=== PATIENT | female | born 1985 | race Caucasian/White ===

== ENCOUNTER 2024-11-22 01:35 | Emergency (ER) | payer BC, SELFPAY ==
[2024-11-22 01:38] VITALS: BP 142/78
[2024-11-22 01:54] VITALS: BP 113/60
[2024-11-22 01:56] VITALS: BMI 40.4
[2024-11-22 03:00] VITALS: BP 122/68
[2024-11-22] MEDS: PERCOCET 5/325 1 TABLET PO (03:05)
--- NOTE | 2024-11-22 04:14 | ED.GENMED ---
History of Present Illness
General
Chief Complaint: Back Pain
Source: patient
Exam Limitations: none
Time Seen by Provider: 11/22/24 02:10
Nursing documentation reviewed up to this point in time: agreed with
History of Present Illness
History of Present Illness:
This is a 39-year-old woman who has history of asthma, owt-ifkbjpj-cbklaquvb diabetes, lumbar DJD. While rollerblading with her daisy she states she slipped and fell twice, each time landing on her buttocks, more so on the right buttocks
and complains of moderate to severe pain right posterior buttock, sacral region. She has been ambulatory since incident but complains of increasing pain over the past few hours. Fall/injury occurred around 9 PM.
She has not taken anything for discomfort.
She denies weakness or numbness, no abdominal pain, no nausea no vomiting, no difficulty urinating. She denies headache nor head injury. Denies neck pain.
No history of bleeding disorders and takes no anticoagulants.
She denies risk of , last menstrual period 3 days ago.
She has history of lumbar disc disease but no history of spinal surgeries nor epidural steroid injections. Has never required pain management nor orthopedic evaluation.
She reports allergy to NSAIDs causing hives and lip swelling.
Past History
Past History
ED Past Medical History: Asthma, NIDDM, Psychiatric (ADHD) and Other (Anemia; lumbar disc disease)
ED Past Surgical History: Appendectomy, Gynecological (Tubal ligation) and Tonsilectomy
Social History
Tobacco: Non-smoker
Alcohol: Occasional
Personal:
Living: with family
Employment: Employed
Family History
Family History: Other (Noncontributory)
Phy Exam
Physical Exam
Physical Exam:
GENERAL: 39-year-old overweight female appears her stated age, awake and alert, appears in mild distress related to pain. Cooperative. Lying on her left side.
EYE: anicteric. The head is normocephalic, atraumatic.
NECK: Supple, nontender, no significant adenopathy.
ENT: oral mucosa is moist. No rhinorrhea.
CARDIAC: Regular rate and rhythm. no murmur.
LUNGS: Clear breath sounds bilaterally, no acute respiratory distress, no wheezes/rales/rhonchi
ABDOMEN: Soft, nondistended, without focal tenderness, no r/g, no cvat. normoactive BS.
BACK: Moderate tenderness right sacral region with palpable focal soft tissue contusion along the right mid to superior sacrum with scant early ecchymosis. Mild tenderness to the right posterior hip.
NEUROLOGICAL: Alert and oriented x3, no focal neuro deficits.
SKIN: Warm and dry, normal color, skin intact. No rash.
MUSCULOSKELETAL: No C/C/E. peripheral pulses are full and equal b/l. Mild to moderate tenderness right posterior hip. No tenderness to the anterior nor lateral hip. Moderately restricted range of motion of right hip related to pain. There is no
leg length discrepancy. No tenderness to the thigh nor knees nor lower extremities. Sensation and strength intact.
PSYCH: Normal and appropriate interaction.
Course
Orders/Labs/Results
Orders:
Orders
11/22/24 02:56
Ice Pack-Treatment DIRECTED
Location: right sacrum
Oxycodone/Acetaminophen [Percocet 5/325] 1 tablet PO NOW STA
11/22/24 02:57
CR Hip - RT w/wo Pel 2-3 Vw* Urgent
Comment:
Reason For Exam: fall onto butt/R hip-pain
Include a pelvis x-ray?: Yes
Sacrum/Coccyx 2 View CR [CR Sacrum/coccyx Min 2 View] Urgent
Comment:
Reason For Exam: fall onto butt, R sacral pain
Vital Signs
Initial and Last Documented VS:
Initial Vital Signs
Temp Pulse Resp BP Pulse Ox
98.4 F 83 20 142/78 99
11/22/24 01:38 11/22/24 01:38 11/22/24 01:38 11/22/24 01:38 11/22/24 01:38
Last Documented Vital Signs
Temp Pulse Resp BP Pulse Ox
98.4 F 82 20 114/67 96
11/22/24 01:38 11/22/24 05:00 11/22/24 01:38 11/22/24 05:00 11/22/24 05:00
MDM/Problems Addressed
Differential Diagnosis Includes:
Concern for sacral fracture, pelvic fracture, less likely right hip fracture.
Will medicate for pain with Percocet and will check x-rays.
Will add local ice.
Chronic conditions affecting care: Other (Lumbar disc disease)
*Radiology
Radiology exam reviewed: preliminary read by ED provider (Right hip/pelvis, sacrum x-rays negative for fracture.)
*Pulse Oximetry
Patient hypoxic: no
*Critical Care Note
Total Time (30-74mins, 75-104mins- exclusive of procedures): Not Applicable
Update Note
Update Note:
04:30
Patient feeling improved after dose of Percocet, local ice.
X-rays reviewed by myself, no evidence of fracture.
Recommend supportive measures, rest, local ice. I have written a prescription for a few Percocet for as needed pain.
Prompt follow-up with PCP for recheck.
ED Attending Note
-
Portions of this chart may have been created with voice recognition software.� Occasional wrong word or��sound alike� substitutions may have occurred due to the inherent limitations of voice recognition software.
Discharge Plan
Departure
Patient Disposition: Home (Routine Discharge)
Date of Disposition: 11/22/24
Time of Disposition: 04:30
Patient with high blood pressure during this ER visit?: No
Condition: Good
Discharge Problem:
right sacral contusion
Instructions: Coccyx Injury ED, Contusion
Prescriptions:
New
oxycodone-acetaminophen [Percocet] 5-325 mg Tablet
1 tab PO Q6HPRN PRN (Reason: pain) Qty: 6 0RF
Referrals:
PRIVATE,PHYSICIAN [Family Provider] - Call in 1-3 days for appt
Interventions
Interventions:
*Risk Screen - Suicide Last Done: 11/22/24 01:38
*General Assessment Last Done: 11/22/24 01:38
*Neglect/Abuse Screening Last Done: 11/22/24 01:38
ED- Fall Risk Assessment Last Done: 11/22/24 01:38
*ED COVID-19 Vaccine History Last Done: 11/22/24 01:38
*Nursing Disposition Last Done: 11/22/24 05:00
ED-Musculoskeletal Assessment Last Done: 11/22/24 01:56
Discharge Date and Time
Discharge Date/Time: 11/22/24 05:20
Print Language: OCCITAN
[2024-11-22 04:45] VITALS: BP 114/67
[2024-11-22 05:00] VITALS: BP 114/67
== END 2024-11-22 05:20 | disposition home or self-care (01) ==
LOC: EMR 01:35
PROVIDERS: EMERGENCY PHYSICIAN Emergency Medicine
DX: S30.0XXA Contusion of lower back and pelvis, initial encounter (principal); W01.0XXA Fall on same level from slipping, tripping and stumbling without subsequent striking against object, initial encounter; J45.909 Unspecified asthma, uncomplicated; E11.9 Type 2 diabetes mellitus without complications; Z90.49 Acquired absence of other specified parts of digestive tract; Z98.51 Tubal ligation status
CPT/HCPCS: 99283; 72220; 73502

== ENCOUNTER 2025-02-01 21:15 | Emergency (ER) | payer BC, SELFPAY ==
[2025-02-01 21:15] VITALS: BMI 40.7
[2025-02-01 21:17] VITALS: BP 145/90
[2025-02-01 21:42] LABS: % Basophils 0.2 % (0-2); % Eosinophils 1.5 % (0-6); % Immature Granulocytes 0.4 % (0-0.5); % Monocytes 5.2 % (1.7-9.3); % Neutrophils 57.7 % (42.2-75.2); Absolute Eosinophils 0.1 10^3/uL (0-0.7); Absolute Lymphocytes 2.8 10^3/uL (1.2-3.4); Absolute Monocytes 0.4 10^3/uL (0.1-0.6); Absolute Neutrophils 4.7 10^3/uL (1.4-6.5); Hematocrit 37.5 % (37.0-47.0); Hemoglobin 12.8 g/dL (12.0-16.0); Mean Corp Hgb Conc. 34.1 g/dL (33.0-37.0); Mean Corpuscular Hgb 29.7 pg (27.0-31.0); Mean Platelet Volume 10.8 fL (7.4-10.4); Nucleated Red Blood Cells % 0 %; Platelet Count 260 10^3/uL (130-400); Red Blood Cell Count 4.31 10^6/uL (4.20-5.40); Red Cell Dist. Width 12.5 % (11.5-14.5); White Blood Cell Count 8.1 10^3/uL (4.8-10.8)
[2025-02-01 21:54] LABS: ALT (SGPT) 41 U/L (0-35); AST (SGOT) 31 U/L (14-36); Albumin 4.5 g/dl (3.5-5.0); Alkaline Phosphatase 57 U/L (38-126); Blood Urea Nitrogen 14 mg/dl (7-17); Calcium 10.3 mg/dl (8.4-10.2); Carbon Dioxide 25 mmol/L (22-30); Chloride 103 mmol/L (98-107); Glucose 184 mg/dl (70-99); Potassium 4.3 mmol/L (3.5-5.1); Sodium 138 mmol/L (135-145); Total Bilirubin 0.6 mg/dl (0.2-1.3); Total Protein 7.2 g/dl (6.3-8.2); eGFR > 60.00
--- NOTE | 2025-02-02 00:02 | ED.GENMED ---
History of Present Illness
General
Chief Complaint: Dizziness
Source: patient
Exam Limitations: none
Time Seen by Provider: 02/02/25 00:00
Nursing documentation reviewed up to this point in time: agreed with
History of Present Illness
History of Present Illness:
This is a 40-year-old female past medical history of asthma, diabetes, adhd, who presents emergency department today with concerns of sensation of vertigo starting upon waking this morning. She never had anything like this before. She reports that
when she turned her head this morning, she felt a sensation that the room was spinning. When she lays still, symptoms do improve. This sensation is associated with a posterior headache. She denies any fevers or chills. She denies any trauma to the
head or neck. She has no nausea or vomiting associated with this. Patient was able to take some naps today and upon awakening, this did improve her symptoms however anytime she briskly turns her head or looks up or down she hit with that sensation
of room spinning again. She has not had any syncopal episodes. She denies any chest pain or shortness of breath. She denies dysphagia, dysarthria. Patient states her ears have felt full recently but denies any tinnitus.
Past History
Past History
ED Past Medical History: Asthma, NIDDM, Psychiatric (ADHD) and Other (Anemia; lumbar disc disease)
ED Past Surgical History: Appendectomy, Gynecological (Tubal ligation) and Tonsilectomy
Social History
Tobacco: Non-smoker
Alcohol: Occasional
Personal:
Living: with family
Employment: Employed
Family History
Family History: Other (Noncontributory)
Review of Systems
Review of Systems
All Other Systems: ROS reviewed and negative except as documented in HPI and ROS
Phy Exam
Physical Exam
Physical Exam:
General: Patient is well appearing and in no acute distress; non-toxic
Skin: Warm and dry, no rashes or lesions
Head: Normocephalic, atraumatic
Eyes: Sclera non-icteric. EOMs intact. No nystagmus
Cardiac: Regular rate and rhythm, no murmurs
Peripheral Vascular: No lower extremity swelling or edema
Pulm: Normal respiratory effort, no wheezes, rales, or rhonchi
Abdomen: No abdominal tenderness to palpation
Neuro: CN II-XII intact, no focal neurologic deficits. Normal finger to nose, heel to stewart testing. Normal gate.
Psychiatric: Appropriate mood and affect.
Course
Orders/Labs/Results
Orders:
Orders
02/01/25 21:21
EKG [Electrocardiogram (*1)] Urgent
Reason for Study: Vertigo / Dizzy
EKG- Treatment ONCE
02/01/25 21:31
Complete Blood Count/With Diff Urgent
Comprehensive Metabolic Panel Urgent
02/02/25 00:36
CT Head W/o Iv Contrast Urgent
Comment:
Reason For Exam: dizziness
0.9% Sodium Chloride 1000 ml [Nss] 1,000 ml IV BOLUS
02/02/25 00:37
Meclizine [Antivert] 25 mg PO NOW STA
Abnormal Lab Results
02/01/25
21:31
MPV 10.8 H fL
(7.4-10.4)
Glucose 184 H mg/dl
(70-99)
Calcium 10.3 H mg/dl
(8.4-10.2)
ALT 41 H U/L
(0-35)
02/01/25 21:31
02/01/25 21:31
Vital Signs
Initial and Last Documented VS:
Initial Vital Signs
Temp Pulse Resp BP Pulse Ox
98.4 F 86 18 145/90 99
02/01/25 21:17 02/01/25 21:17 02/01/25 21:17 02/01/25 21:17 02/01/25 21:17
Last Documented Vital Signs
Temp Pulse Resp BP Pulse Ox
98.4 F 86 18 124/76 97
02/01/25 21:17 02/01/25 21:17 02/01/25 21:17 02/02/25 02:53 02/02/25 02:46
MDM/Problems Addressed
Differential Diagnosis Includes:
ddx include BPPV, vestibular neuritis, brain tumor, complex migraine, dehydration, monjauro side affect, CVA
MDM/Problems Addressed:
This is a 40-year-old female past medical history of asthma, diabetes, adhd, who presents emergency department today with concerns of sensation of vertigo starting upon waking this morning. She never had anything like this before. Symptoms are very
clearly positional and worsened with brisk head movement. Episodes of dizziness last for a few seconds to a minute and then resolve when she remains still again. Since she is never had the symptoms before, did get a CAT scan of the head which did
not show any evidence of any acute disease. Did give patient IV fluids and a dose of meclizine. On reassessment, did have patient do the same movements with her head and walk around she states that the vertigo sensation resting sensations
completely resolved. Suspect BPPV. Information given for vestibular rehab, recommend following up with primary. Low suspicion for posterior CVA. Patient stable for discharge.
Chronic conditions affecting care:
asthma, diabetes, ADHD
*Pulse Oximetry
Patient hypoxic: no
*Critical Care Note
Total Time (30-74mins, 75-104mins- exclusive of procedures): Not Applicable
Data Reviewed
Review of Other/Old Records Reveals: Records (Reviewed ER physician documentation 11/22/2024, patient seen for DJD of the on back pain)
Source: patient and records
Patient Management
Escalation/DeEscalation of care consider admission/obs:
admit not indicated pt stable for discharge
ED Attending Note
-
Portions of this chart may have been created with voice recognition software.� Occasional wrong word or��sound alike� substitutions may have occurred due to the inherent limitations of voice recognition software.
Discharge Plan
Departure
Patient Disposition: Home (Routine Discharge)
Date of Disposition: 02/02/25
Time of Disposition: 02:59
Patient with high blood pressure during this ER visit?: Yes
Condition: Good
Discharge Problem:
Vertigo
Instructions: Vertigo (a Type of Dizziness) (DC), BLOOD PRESSURE
Prescriptions:
New
meclizine 25 mg tablet
25 mg PO BID PRN (Reason: dizziness) Qty: 10 0RF
No Action
oxycodone-acetaminophen [Percocet] 5-325 mg Tablet
1 tab PO Q6HPRN PRN (Reason: pain) Qty: 6 0RF
Referrals:
PRIVATE,PHYSICIAN [Family Provider] -
Stand Alone Forms: Return to Work
Activity Restrictions/Additional Instructions:
Your CT scan was normal.
Meclizine has been sent to your pharmacy. You can take 1 tablet twice daily as needed for dizziness/vertigo.
Please follow-up with her PCP in 1 week, you may need to see an ENT for further evaluation of your symptoms or neurologist should your symptoms return.
PLEASE RETURN EMERGENCY DEPARTMENT SHOULD YOU EXPERIENCE RETURN OF SYMPTOMS, ACUTE WORSENING OF HER SYMPTOMS, TRACTABLE NAUSEA OR VOMITING, VISUAL LOSS, WEAKNESS IN ONE-SIDED BODY, NUMBNESS OR TINGLING, CONFUSION, SYNCOPAL EPISODES, OR ANY OTHER
SIGNS OR SYMPTOMS WORRISOME TO YOU.
Interventions
Interventions:
*Risk Screen - Suicide Last Done: 02/01/25 21:17
*General Assessment Last Done: 02/01/25 21:17
*ED- Fall Risk Assessment Last Done: 02/01/25 21:17
*ED COVID-19 Vaccine History Last Done: 02/01/25 21:17
*Nursing Disposition Last Done: 02/02/25 03:08
ED- Neurological Assessment Last Done: 02/02/25 01:33
ED Swallowing Screen Last Done: 02/02/25 01:33
Discharge Date and Time
Discharge Date/Time: 02/02/25 03:08
Print Language: AMHARIC
[2025-02-02] MEDS: ANTIVERT 25 MG PO (01:12)
[2025-02-02] MEDS: NSS 1000 IV (01:25)
[2025-02-02 01:27] VITALS: BP 125/66
[2025-02-02 02:53] VITALS: BP 124/76
== END 2025-02-02 03:08 | disposition home or self-care (01) ==
LOC: EMR 21:15
PROVIDERS: Emergency Medicine; EMERGENCY PHYSICIAN Student in an Organized Health Care Education/Training Program
DX: R42 Dizziness and giddiness (principal); R51.9 Headache, unspecified; R03.0 Elevated blood-pressure reading, without diagnosis of hypertension; J45.909 Unspecified asthma, uncomplicated; E11.9 Type 2 diabetes mellitus without complications; F90.9 Attention-deficit hyperactivity disorder, unspecified type; M51.369 Other intervertebral disc degeneration, lumbar region without mention of lumbar back pain or lower extremity pain; M19.90 Unspecified osteoarthritis, unspecified site; D64.9 Anemia, unspecified; Z79.84 Long term (current) use of oral hypoglycemic drugs; Z88.6 Allergy status to analgesic agent
CPT/HCPCS: 99284; 96360; 70450; 80053; 85025; 93005

== ENCOUNTER 2025-03-05 04:12 | Emergency (ER) | payer BC, SELFPAY ==
[2025-03-05 04:14] VITALS: BP 143/95
[2025-03-05] MEDS: ZOFRAN 4 MG IV (04:46)
[2025-03-05] MEDS: DILAUDID 0.5 MG IV (04:46)
[2025-03-05] MEDS: NSS 1000 IV (04:47)
[2025-03-05 04:49] VITALS: BP 119/71
[2025-03-05 04:51] VITALS: BMI 39.8
[2025-03-05 04:59] LABS: % Basophils 0.3 % (0-2); % Eosinophils 1.3 % (0-6); % Immature Granulocytes 0.1 % (0-0.5); % Lymphocytes 31.3 % (20.5-51.1); % Monocytes 7.4 % (1.7-9.3); % Neutrophils 59.6 % (42.2-75.2); Absolute Eosinophils 0.1 10^3/uL (0-0.7); Absolute Lymphocytes 2.1 10^3/uL (1.2-3.4); Absolute Monocytes 0.5 10^3/uL (0.1-0.6); Absolute Neutrophils 4.1 10^3/uL (1.4-6.5); Hematocrit 35.8 % (37.0-47.0); Hemoglobin 12.4 g/dL (12.0-16.0); Mean Corp Hgb Conc. 34.6 g/dL (33.0-37.0); Mean Corpuscular Hgb 30.1 pg (27.0-31.0); Mean Corpuscular Volume 86.9 fL (81.0-99.0); Mean Platelet Volume 11.5 fL (7.4-10.4); Nucleated Red Blood Cells % 0 %; Platelet Count 249 10^3/uL (130-400); Red Blood Cell Count 4.12 10^6/uL (4.20-5.40); Red Cell Dist. Width 12.6 % (11.5-14.5); White Blood Cell Count 6.8 10^3/uL (4.8-10.8)
[2025-03-05 05:00] VITALS: BP 111/65
--- NOTE | 2025-03-05 05:05 | ED.GENMED ---
History of Present Illness
<MICHELLE Moore Jr. Last Filed: 03/06/25 01:46>
General
Chief Complaint: Abdominal Pain
Source: patient
Exam Limitations: none
Time Seen by Provider: 03/05/25 04:19
Nursing documentation reviewed up to this point in time: agreed with
History of Present Illness
History of Present Illness:
40-year-old female past medical history of diabetes asthma anemia presenting to the emergency department today with concerns of left lower quadrant abdominal pain starting yesterday morning worsening today severe overnight which made her come to the
ER. Apparently she has had workups in the past at [facility] that did not find any specific cause. Also has followed up with gynecology without any explanation.
Past History
<MICHELLE Moore Jr. Last Filed: 03/06/25 01:46>
Past History
ED Past Medical History: Asthma, NIDDM, Psychiatric (ADHD) and Other (Anemia; lumbar disc disease)
ED Past Surgical History: Appendectomy, Gynecological (Tubal ligation) and Tonsilectomy
Social History
Tobacco: Non-smoker
Alcohol: Occasional
Personal:
Living: with family
Employment: Employed
Family History
Family History: Other (Noncontributory)
Review of Systems
<MICHELLE Moore Jr. Last Filed: 03/06/25 01:46>
Review of Systems
Allergies reviewed?: Yes
All Other Systems: ROS reviewed and negative except as documented in HPI and ROS
Phy Exam
<MICHELLE Moore Jr. Last Filed: 03/06/25 01:46>
Physical Exam
Physical Exam:
GENERAL: Alert , in no apparent distress
EYE: pupils equal and reactive
NECK: Supple, no significant adenopathy.
ENT: o/p clr, mmm.
CARDIAC: Regular rate and rhythm .
LUNGS: Clear breath sounds bilaterally, no acute respiratory distress, no wheezes/rales/rhonchi
ABDOMEN: Reproducible pain to the left lower quadrant of the abdomen otherwise soft abdomen
NEUROLOGICAL: Alert and oriented, no focal neuro deficits
SKIN: Warm and dry, skin intact.
MUSCULOSKELETAL: No edema, well perfused.
PSYCH: Normal and appropriate interaction.
Course
<Andrea Persaud Jr., PA-C - Last Filed: 03/06/25 01:46>
Orders/Labs/Results
Orders:
Orders
03/05/25 04:39
CT Abd/Pel (IV only)-DH only Urgent
Comment:
Reason For Exam: llq pain
0.9% Sodium Chloride 1000 ml [Nss] 1,000 ml IV BOLUS
HYDROmorphone [Dilaudid] 0.5 mg IV NOW STA
Ondansetron Injectable [Zofran] 4 mg IV NOW STA
Test Result ONCE
03/05/25 04:46
Complete Blood Count/With Diff Urgent
Comprehensive Metabolic Panel Urgent
HCG, Serum Qualitative Screen Urgent
Lipase Urgent
03/05/25 07:01
Acetaminophen 1000MG/100Ml [Ofirmev] 1,000 mg in 100 ml IV ONCE
Acetaminophen IV Indication:: ED Narcotic Naive Pt-ONCE
03/05/25 07:02
Acetaminophen 1000MG/100Ml [Ofirmev] 1,000 mg in 100 ml .ROUTE .STK-MED
03/05/25 07:15
Urinalysis Reflex To Culture Urgent
Date Specimen was Collected: 03/05/25
Time Specimen was Collected: 07:13
Urine Microscopic Reflex Cult Urgent
03/05/25 08:13
US Pelvis Only (non-obstetric) Urgent
Comment:
Reason For Exam: left lower abd pain
Abnormal Lab Results
03/05/25 03/05/25
04:46 07:15
RBC 4.12 L 10^6/uL
(4.20-5.40)
Hct 35.8 L %
(37.0-47.0)
MPV 11.5 H fL
(7.4-10.4)
Glucose 159 H mg/dl
(70-99)
ALT 54 H U/L
(0-35)
Ur Occult Blood Reflex 4+ A
(Negative)
Urine RBC 3-6 A /HPF
(0-2)
Urine Bacteria (Reflex) Few A
(Negative)
Urine Albumin (Reflex) 2+ A
(Neg - Trace)
03/05/25 04:46
03/05/25 04:46
Vital Signs
Initial and Last Documented VS:
Initial Vital Signs
Temp Pulse Resp BP Pulse Ox
97.9 F 87 16 143/95 99
03/05/25 04:14 03/05/25 04:14 03/05/25 04:14 03/05/25 04:14 03/05/25 04:14
Last Documented Vital Signs
Temp Pulse Resp BP Pulse Ox
97.9 F 75 20 125/76 98
03/05/25 04:14 03/05/25 10:46 03/05/25 10:46 03/05/25 12:41 03/05/25 10:46
<KASEY Emerson - Last Filed: 03/05/25 12:39>
Orders/Labs/Results
Orders:
Orders
03/05/25 04:39
CT Abd/Pel (IV only)-DH only Urgent
Comment:
Reason For Exam: llq pain
0.9% Sodium Chloride 1000 ml [Nss] 1,000 ml IV BOLUS
HYDROmorphone [Dilaudid] 0.5 mg IV NOW STA
Ondansetron Injectable [Zofran] 4 mg IV NOW STA
Test Result ONCE
03/05/25 04:46
Complete Blood Count/With Diff Urgent
Comprehensive Metabolic Panel Urgent
HCG, Serum Qualitative Screen Urgent
Lipase Urgent
03/05/25 07:01
Acetaminophen 1000MG/100Ml [Ofirmev] 1,000 mg in 100 ml IV ONCE
Acetaminophen IV Indication:: ED Narcotic Naive Pt-ONCE
03/05/25 07:02
Acetaminophen 1000MG/100Ml [Ofirmev] 1,000 mg in 100 ml .ROUTE .STK-MED
03/05/25 07:15
Urinalysis Reflex To Culture Urgent
Date Specimen was Collected: 03/05/25
Time Specimen was Collected: 07:13
Urine Microscopic Reflex Cult Urgent
03/05/25 08:13
US Pelvis Only (non-obstetric) Urgent
Comment:
Reason For Exam: left lower abd pain
Abnormal Lab Results
03/05/25 03/05/25
04:46 07:15
RBC 4.12 L 10^6/uL
(4.20-5.40)
Hct 35.8 L %
(37.0-47.0)
MPV 11.5 H fL
(7.4-10.4)
Glucose 159 H mg/dl
(70-99)
ALT 54 H U/L
(0-35)
Ur Occult Blood Reflex 4+ A
(Negative)
Urine RBC 3-6 A /HPF
(0-2)
Urine Bacteria (Reflex) Few A
(Negative)
Urine Albumin (Reflex) 2+ A
(Neg - Trace)
03/05/25 04:46
03/05/25 04:46
Vital Signs
Initial and Last Documented VS:
Initial Vital Signs
Temp Pulse Resp BP Pulse Ox
97.9 F 87 16 143/95 99
03/05/25 04:14 03/05/25 04:14 03/05/25 04:14 03/05/25 04:14 03/05/25 04:14
Last Documented Vital Signs
Temp Pulse Resp BP Pulse Ox
97.9 F 75 20 125/76 98
03/05/25 04:14 03/05/25 10:46 03/05/25 10:46 03/05/25 12:41 03/05/25 10:46
<Andrea Persaud Jr., PA-C - Last Filed: 03/06/25 01:46>
MDM/Problems Addressed
MDM/Problems Addressed:
40-year-old female presenting to the emergency department today with concerns of left lower quadrant abdominal pain present since yesterday severe overnight tonight. Has had similar episodes in the past without any explanations with previous
workups.
<KASEY Emerson - Last Filed: 03/05/25 12:39>
MDM/Problems Addressed
MDM/Problems Addressed:
Right 40-year-old female presenting to the emergency department today with concerns of left lower quadrant abdominal pain present since yesterday severe overnight tonight. Has had similar episodes in the past without any explanations with previous
workups.
0625: Received signout from patient patient had CAT scan waiting results. Patient complains of left lower abd pain . per pt/boyfriend she has had this pain intermittently for the past 8 to 9 years not diagnosed. She has been followed by
gynecology and she reports she has had extensive workup at [facility] by her greenhouse worker with outpatient imaging without any identifiable cause. She does report that she was told once that her [employer] thinks this is mittelschmerz.
0720L CAT scan negative. Labs unremarkable urinalysis pending.
Pt has been sleeping comfortably. Urinalysis negative. With complaints of left lower quadrant pain a dedicated pelvic ultrasound was done and negative for acute findings or blood flow. Will have follow-up with PCP and [facility] SITTER
<KASEY Emerson - Last Filed: 03/05/25 12:39>
*Radiology
Radiology exam reviewed: radiology read reviewed
*Pulse Oximetry
Patient hypoxic: no
*Critical Care Note
Total Time (30-74mins, 75-104mins- exclusive of procedures): Not Applicable
ED Attending Note
<Andrea Persaud Jr., PA-C - Last Filed: 03/06/25 01:46>
-
Portions of this chart may have been created with voice recognition software.� Occasional wrong word or��sound alike� substitutions may have occurred due to the inherent limitations of voice recognition software.
Discharge Plan
Departure
Patient Disposition: Home (Routine Discharge)
Date of Disposition: 03/05/25
Time of Disposition: 11:30
Patient with high blood pressure during this ER visit?: Yes
Condition: Fair
Covid-19: Not Applicable
Discharge Problem:
Abdominal pain
Instructions: Abdominal Pain, BLOOD PRESSURE
Prescriptions:
No Action
oxycodone-acetaminophen [Percocet] 5-325 mg Tablet
1 tab PO Q6HPRN PRN (Reason: pain) Qty: 6 0RF
meclizine 25 mg tablet
25 mg PO BID PRN (Reason: dizziness) Qty: 10 0RF
Referrals:
PRIVATE,PHYSICIAN [Family Provider] -
Stand Alone Forms: Back to School, Return to Work
Activity Restrictions/Additional Instructions:
As discussed please continue follow-up with your family doctor as well as gynecology for persistent symptoms. Return if any worsening of symptoms
Interventions
Interventions:
*Risk Screen - Suicide Last Done: 03/05/25 05:32
*General Assessment Last Done: 03/05/25 04:14
*Neglect/Abuse Screening Last Done: 03/05/25 04:14
*ED- Fall Risk Assessment Last Done: 03/05/25 04:51
*ED COVID-19 Vaccine History Last Done: 03/05/25 04:14
*Nursing Disposition Last Done: 03/05/25 12:44
FW-Dxxtjg-Jhnstqqazd Assessment Last Done: 03/05/25 04:51
Discharge Date and Time
Discharge Date/Time: 03/05/25 12:44
Print Language: CZECH
[2025-03-05 05:07] LABS: HCG, Serum Qualitative Screen Negative
[2025-03-05 05:22] LABS: ALT (SGPT) 54 U/L (0-35); AST (SGOT) 35 U/L (14-36); Albumin 4.1 g/dl (3.5-5.0); Alkaline Phosphatase 44 U/L (38-126); Blood Urea Nitrogen 10 mg/dl (7-17); Calcium 9.1 mg/dl (8.4-10.2); Carbon Dioxide 24 mmol/L (22-30); Chloride 106 mmol/L (98-107); Estimated Creatinine Clearance > 125 ml/min; Glucose 159 mg/dl (70-99); Lipase 63 U/L (23-300); Potassium 4.2 mmol/L (3.5-5.1); Sodium 139 mmol/L (135-145); Total Bilirubin 0.9 mg/dl (0.2-1.3); Total Protein 6.8 g/dl (6.3-8.2); eGFR > 60.00
[2025-03-05] MEDS: OFIRMEV 100 IV (07:07)
[2025-03-05 07:45] LABS: Urine Albumin 2+ (Neg - Trace); Urine Bilirubin Negative (Negative); Urine Character Clear (Clear); Urine Color Yellow; Urine Glucose Negative (Negative); Urine Ketone Negative (Negative); Urine Leukocyte Negative (Negative); Urine Nitrite Negative (Negative); Urine Occult Blood 4+ (Negative); Urine Urobilinogen Negative (Neg - 1+)
[2025-03-05 09:02] LABS: Urine Squamous Cell 16-20 /LPF (Few); Urine Urothelial Cell 0-2 /LPF (FEW)
[2025-03-05 09:03] LABS: Urine Bacteria Few (Negative)
[2025-03-05 10:41] VITALS: BP 109/71
[2025-03-05 10:46] VITALS: BP 109/71
[2025-03-05 12:39] LABS: Glucose - Point of Care 95 mg/dl (70-99)
[2025-03-05 12:41] VITALS: BP 125/76
== END 2025-03-05 12:44 | disposition home or self-care (01) ==
LOC: EMR 04:12
PROVIDERS: Physician Assistant; EMERGENCY PHYSICIAN Emergency Medicine
DX: R10.32 Left lower quadrant pain (principal); E11.9 Type 2 diabetes mellitus without complications; J45.909 Unspecified asthma, uncomplicated; Z90.49 Acquired absence of other specified parts of digestive tract
CPT/HCPCS: 96374; 96375; 96361; 99284; 74177; 76856; 80053; 81003; 81015; 82962; 83690; 84703; 85025; Q9967

== ENCOUNTER 2025-04-22 00:56 | Emergency (ER) | payer BC, SELFPAY ==
[2025-04-22 01:00] VITALS: BP 142/71
--- NOTE | 2025-04-22 01:12 | ED.GENMED ---
History of Present Illness
General
Chief Complaint: Breathing Problem
Source: patient and ambulance crew
Exam Limitations: none
Time Seen by Provider: 04/22/25 01:02
History of Present Illness
History of Present Illness:
See MDM
Past History
Past History
ED Past Medical History: Asthma, NIDDM, Psychiatric (ADHD) and Other (Anemia; lumbar disc disease)
ED Past Surgical History: Appendectomy, Gynecological (Tubal ligation) and Tonsilectomy
Social History
Tobacco: Non-smoker
Alcohol: Occasional
Personal:
Living: with family
Employment: Employed
Family History
Family History: Other (Noncontributory)
Phy Exam
Physical Exam
Physical Exam:
See MDM
Course
Orders/Labs/Results
Orders:
Orders
04/22/25 01:02
Albuterol Sulfate [Ventolin Nebules] 7.5 mg INH R NOW STA
Ipratropium Nebs [Atrovent Nebules] 1 mg INH R NOW STA
Test Result ONCE
CR Chest Portable - 1 View Urgent
Comment:
Reason For Exam: SOB, wheezing
Reason Study Needs to be Portable: Patient Unstable
04/22/25 01:09
Complete Blood Count/With Diff Urgent
Comprehensive Metabolic Panel Urgent
HCG, Serum Qualitative Screen Urgent
Abnormal Lab Results
04/22/25
01:09
RBC 4.03 L 10^6/uL
(4.20-5.40)
Hct 35.1 L %
(37.0-47.0)
MPV 11.7 H fL
(7.4-10.4)
Chloride 109 H mmol/L
(98-107)
Carbon Dioxide 21 L mmol/L
(22-30)
Glucose 157 H mg/dl
(70-99)
ALT 44 H U/L
(0-35)
04/22/25 01:09
04/22/25 01:09
Vital Signs
Initial and Last Documented VS:
Initial Vital Signs
Pulse Resp Pulse Ox
95 22 96
04/22/25 00:59 04/22/25 00:59 04/22/25 00:59
Last Documented Vital Signs
Temp Pulse Resp BP Pulse Ox
97.8 F 88 27 142/71 97
04/22/25 01:00 04/22/25 01:00 04/22/25 01:00 04/22/25 01:00 04/22/25 01:14
MDM/Problems Addressed
Differential Diagnosis Includes:
Note:
CHIEF COMPLAINT(S)
Asthma exacerbation
HISTORY OF PRESENT ILLNESS
The patient is a 38-year-old female with a past medical history of asthma presenting with an exacerbation. The patient reports that her asthma has only been this severe once in the past, and she has never required intubation. Currently, she does not
have access to her inhaler. In the emergency department, she has received breathing treatments and intravenous steroids and reports feeling �a little bit� better. The patient is unsure of any specific triggers but notes potential mild seasonal
allergies. She denies any recent illness.
Patient received DuoNeb and 10 mg IV Decadron by EMS. EMS, respiratory was at bedside on arrival. Overall, patient somewhat better and does not require BiPAP or intubation at the moment
PHYSICAL EXAM
General: Mildly uncomfortable, tachypnea
HEENT: protecting airway
Neck: appears supple
CV: No evidence of cyanosis. Regular rate and rhythm
Resp: No accessory muscle use. Tachypnea expiratory wheezes throughout
Abd: Non-distended
Extremities: No deformities
Neuro: alert
Psych: Anxious
Skin: Intact
PLAN
The plan includes performing a chest X-ray, administering additional breathing treatments, and continued monitoring of the patients response to treatment. There is a consideration for admission if symptoms do not adequately improve.
DIFFERENTIAL DIAGNOSIS
The Differential Diagnosis includes, in no particular order and is not limited to:
1. Asthma exacerbation
2. Chronic obstructive pulmonary disease (COPD) exacerbation
3. Pneumonia
4. Pneumothorax
5. Pulmonary embolism
6. Anaphylaxis
7. Heart failure exacerbation
8. Acute respiratory distress syndrome (ARDS)
9. Foreign body aspiration
10. Viral upper respiratory infection
CARE-UPDATE
04/22/25 - 02:25
Patient shows signs of improvement and appears more stable than previous assessment; respiratory status has not declined as initially anticipated. Awaiting results of the latest X-ray to confirm progress. Indications suggest potential discharge, but
patient is not ready at this moment.
SUMMARY OF ENCOUNTER
The patient, a 38-year-old female with a history of asthma, presented to the emergency department with a severe asthma exacerbation. She reported a similar severity only once in the past and had never required intubation. She currently did not have
access to her inhaler. In the ED, she received breathing treatments and intravenous steroids, which led to slight improvement.
DISPOSITION
The patient feels comfortable going home following treatment.
ASSESSMENT
Asthma exacerbation with improvement post-treatment.
EMERGENCY TREATMENTS ADMINISTERED
The patient received breathing treatments and intravenous steroids.
REASSESSMENT
Multiple reassessments indicated that the patient appeared well and non-toxic, with resolved wheezing.
PLAN
The plan includes prescribing a short course of steroids and refilling the albuterol inhaler. The patient was provided with return precautions.
INDEPENDENT REVIEW OF LABS AND INTERPRETATION OF TESTS
My independent interpretation of the chest X-ray is that there is no evidence of pneumonia.
MEDICATION RECONCILIATION
Prescribed a short course of steroids and refilled albuterol inhaler.
MEDICAL DECISION MAKING
1. Number & Complexity of Problems: Chronic conditions affecting care include the patients history of asthma. Differential diagnoses considered but effectively ruled out include pneumonia, chronic obstructive pulmonary disease exacerbation, and
anaphylaxis, among others.
2. Data Reviewed: The chest X-ray was ordered and independently reviewed, which showed no evidence of pneumonia.
3. Risk: Consideration of admission was made due to the complexity of the exacerbation, but outpatient management was deemed appropriate based on the improvement with treatment, stable condition, and follow-up reliability.
PATHOLOGIES TO CONSIDER
- Pulmonary embolism
- Anaphylaxis
*Pulse Oximetry
SaO2: 97
Oxygen Mode of Delivery: Room air
Patient hypoxic: no
*Critical Care Note
Total Time (30-74mins, 75-104mins- exclusive of procedures): 31 min
comment:
The high probability of a clinically significant, sudden or life threatening deterioration of the pulmonary system(s) required my full and direct attention, intervention and personal management. The aggregate critical care time was 31 minutes. This
time is in addition to time spent performing reported procedures but includes the following:
[x] Data Review and interpretation
[x] Patient assessment and monitoring of vital signs
[x] Documentation
[x] Medication orders and management
ED Attending Note
-
Portions of this chart may have been created with voice recognition software.� Occasional wrong word or��sound alike� substitutions may have occurred due to the inherent limitations of voice recognition software.
Discharge Plan
Departure
Patient Disposition: Home (Routine Discharge)
Date of Disposition: 04/22/25
Time of Disposition: 03:29
Patient with high blood pressure during this ER visit?: No
Discharge Problem:
Acute asthma exacerbation
Instructions: Asthma, Adult (DC)
Prescriptions:
New
prednisone 20 mg tablet
40 mg PO DAILY Qty: 10 0RF
albuterol sulfate 90 mcg/actuation HFA aerosol inhaler
2 puff inhalation Q6H PRN (Reason: shortness of breath or wheezing) Qty: 8.5 0RF
No Action
oxycodone-acetaminophen [Percocet] 5-325 mg Tablet
1 tab PO Q6HPRN PRN (Reason: pain) Qty: 6 0RF
meclizine 25 mg tablet
25 mg PO BID PRN (Reason: dizziness) Qty: 10 0RF
Referrals:
UNKNOWN - PT DOES,NOT KNOW [Family Provider]
Stand Alone Forms: Return to Work
Activity Restrictions/Additional Instructions:
Please return for any worsening symptoms.
You may return at any time if you have further concerns.
Please follow up with your doctor at the first available appointment, preferably this week.
Thank you for choosing [facility].
Interventions
Interventions:
*Risk Screen - Suicide Last Done: 04/22/25 01:00
*General Assessment Last Done: 04/22/25 01:00
*Neglect/Abuse Screening Last Done: 04/22/25 01:00
*ED- Fall Risk Assessment Last Done: 04/22/25 01:13
*ED COVID-19 Vaccine History Last Done: 04/22/25 01:13
ED- Cardiac Assessment Last Done: 04/22/25 01:12
ED- Pulmonary Assessment Last Done: 04/22/25 01:12
Discharge Date and Time
Print Language: ESTONIAN
[2025-04-22 01:13] VITALS: BMI 38.7
[2025-04-22 01:20] LABS: % Basophils 0.5 % (0-2); % Eosinophils 0.7 % (0-6); % Immature Granulocytes 0.2 % (0-0.5); % Lymphocytes 34.9 % (20.5-51.1); % Monocytes 6.6 % (1.7-9.3); % Neutrophils 57.1 % (42.2-75.2); Absolute Eosinophils 0.1 10^3/uL (0-0.7); Absolute Lymphocytes 3.1 10^3/uL (1.2-3.4); Absolute Monocytes 0.6 10^3/uL (0.1-0.6); Hematocrit 35.1 % (37.0-47.0); Hemoglobin 12.4 g/dL (12.0-16.0); Mean Corp Hgb Conc. 35.3 g/dL (33.0-37.0); Mean Corpuscular Hgb 30.8 pg (27.0-31.0); Mean Corpuscular Volume 87.1 fL (81.0-99.0); Mean Platelet Volume 11.7 fL (7.4-10.4); Nucleated Red Blood Cells % 0 %; Platelet Count 240 10^3/uL (130-400); Red Blood Cell Count 4.03 10^6/uL (4.20-5.40); Red Cell Dist. Width 12.9 % (11.5-14.5); White Blood Cell Count 8.8 10^3/uL (4.8-10.8)
[2025-04-22] MEDS: ATROVENT NEBULES 1 MG INH (01:20)
[2025-04-22] MEDS: VENTOLIN NEBULES 7.5 MG INH (01:20)
[2025-04-22 01:25] LABS: HCG, Serum Qualitative Screen Negative
[2025-04-22 01:38] LABS: ALT (SGPT) 44 U/L (0-35); AST (SGOT) 34 U/L (14-36); Albumin 4.7 g/dl (3.5-5.0); Alkaline Phosphatase 53 U/L (38-126); Blood Urea Nitrogen 15 mg/dl (7-17); Calcium 9.8 mg/dl (8.4-10.2); Carbon Dioxide 21 mmol/L (22-30); Chloride 109 mmol/L (98-107); Estimated Creatinine Clearance > 125 ml/min; Glucose 157 mg/dl (70-99); Sodium 140 mmol/L (135-145); Total Bilirubin 0.7 mg/dl (0.2-1.3); Total Protein 7.5 g/dl (6.3-8.2); eGFR > 60.00
[2025-04-22 02:00] VITALS: BP 127/69
[2025-04-22 03:00] VITALS: BP 116/60
== END 2025-04-22 03:46 | disposition home or self-care (01) ==
LOC: EMR 00:56
PROVIDERS: EMERGENCY PHYSICIAN Student in an Organized Health Care Education/Training Program
DX: J45.901 Unspecified asthma with (acute) exacerbation (principal); E11.9 Type 2 diabetes mellitus without complications; Z90.49 Acquired absence of other specified parts of digestive tract; Z98.51 Tubal ligation status
CPT/HCPCS: 99284; 94640; 71045; 80053; 84703; 85025